=== PATIENT | male | born 1970 | race Caucasian/White ===

== ENCOUNTER → 2021-01-13 | Day surgery (SDC) | payer OTHER ==
[~2021-01-13] MED LIST: CARB15DR3 EACHEYE; CETI10TA16 PO; CEVI30CA11 PO; DOXE10CA PO; ERGO500090 PO; IPRATRPIUM/ALBUTEROL 0.5/2.5MG 3 ML NEBU. NEB PRN; IV RINGERS SOLUTION,LACTATED 1,000 ML IV SCH; LIDO700A21 TP; LIDOCAINE 2% PF 5 ML VIAL. ONE; MAGNESIUM HYDROXIDE PO; MELA3TAB4 PO; MIDAZOLAM HCL PF 2 MG/2 ML VIAL. IV ONE; MULT-445 PO; OMEG1CAP38 PO; ONDANSETRON PF 4 MG/2 ML VIAL. IV PRN; PANT40TA6 PO; PROPOFOL 10,000 MCG/ML (20ML) VIAL IV ONE; TAMS0.4C97 PO; VENL225T PO; advair INH
[2021-01-13 12:22] VITALS: BP 106/89
== END | disposition home or self-care (01) ==
LOC: SURG 11:36
PROVIDERS: ATTEND Internal Medicine Gastroenterology
DX: R19.4 Change in bowel habit (principal); R13.10 Dysphagia, unspecified; R10.13 Epigastric pain; K29.50 Unspecified chronic gastritis without bleeding; K21.00 Gastro-esophageal reflux disease with esophagitis, without bleeding; K63.5 Polyp of colon; K31.89 Other diseases of stomach and duodenum; K63.89 Other specified diseases of intestine; Z79.899 Other long term (current) drug therapy; Z98.890 Other specified postprocedural states
CPT/HCPCS: 43239; 43450; 45380; J2001; J2704; J7120; 88305; 88342